=== PATIENT | female | born 1955 | race Caucasian/White ===

== ENCOUNTER → 2021-10-16 | Outpatient (CLI) | payer OTHER | LOC: M SOG 09:18 | PROVIDERS: ATTEND Orthopaedic Surgery Adult Reconstructive Orthopaedic Surgery | DX: M25.561 Pain in right knee (principal) ==

== ENCOUNTER 2022-10-02 13:14 | Inpatient (IN) | payer BC, OTHER ==
[~2022-10-02] VITALS: Ht 165.1 cm; Wt 95.5 kg
[2022-10-02] MEDS ORDERED: MORPHINE 4 MG/ML 1ML VIAL IV ONE ×3 (13:30→19:35)
[2022-10-02] MEDS ORDERED: BOOSTRIX VACCINE (TETANUS/DIPHTH/ACEL. PERTUSSIS) 0.5ML SYR IM.IMMUN ONE (13:35)
[2022-10-02] MEDS ORDERED: VANCOMYCIN HCL 2,000 MG in IV FLUID PLACE HOLDER 1 EA IV ONE (16:30)
[2022-10-02] MEDS ORDERED: VANCOMYCIN HCL 1,000 MG, VIAL MATE ADAPTER 1 EACH in D5W 250 ML IV ONE ×2 (16:35→17:30)
[2022-10-02] MEDS ORDERED: LABETALOL 100MG/20ML VIAL IV STA (16:35)
[2022-10-02] MEDS ORDERED: MED REC IN PROGRESS XX SCH (16:45)
[2022-10-02 17:10] LABS: RSV AMPLIFICATION NEGATIVE (NEGATIVE)
[2022-10-02] MEDS ORDERED: NAPR-855 PO (17:18)
[2022-10-02] MEDS ORDERED: ASPI81TA26 PO (17:18)
[2022-10-02] MEDS ORDERED: LEXA1TAB PO (17:18)
[2022-10-02] MEDS ORDERED: HOME MED LIST COMPLETE! XX SCH (17:20)
[2022-10-02 19:11] LABS: BASO % 0.2 % (0.0-1.0); EOS # 0.2 10^3/uL (0.0-0.5); EOS % 1.1 % (0.0-3.0); HEMATOCRIT 34.3 % (36.0-47.0); HEMOGLOBIN 10.9 g/dl (12.0-15.5); LYMPH # 1.2 10^3/uL (1.5-5.0); LYMPH % 9.5 % (24.0-44.0); MEAN CORPUSCULAR HEMOGLOBIN 29.7 pg (27.0-33.0); MEAN CORPUSCULAR HGB CONC 31.8 g/dl (32.0-36.5); MEAN CORPUSCULAR VOLUME 93.5 fl (80.0-96.0); MONO # 0.5 10^3/uL (0.0-0.8); MONO % 4.1 % (2.0-8.0); NEUTROPHILS # 11.1 10^3/uL (1.5-8.5); NEUTROPHILS % 84.7 % (36.0-66.0); PLATELET COUNT, AUTOMATED 282 10^3/uL (150-450); RED BLOOD COUNT 3.67 10^6/uL (4.00-5.40); WHITE BLOOD COUNT 13.1 10^3/uL (4.0-10.0)
[2022-10-02 19:33] LABS: ALBUMIN 2.9 G/DL (3.2-5.2); ALKALINE PHOSPHATASE 73 U/L (46-116); ALT/SGPT 13 U/L (7.0-40); AST/SGOT 13 U/L (<34); BILIRUBIN,TOTAL 0.3 MG/DL (0.3-1.2); BLOOD UREA NITROGEN 16 MG/DL (9-23); CALCIUM LEVEL 7.8 MG/DL (8.3-10.6); CARBON DIOXIDE LEVEL 29 MMOL/L (20-31); CHLORIDE LEVEL 104 MMOL/L (98-107); CREATININE FOR GFR 0.55 MG/DL (0.55-1.30); GLOMERULAR FILTRATION RATE > 60.0 (>45); GLUCOSE, FASTING 188 MG/DL (74-106); POTASSIUM SERUM 3.9 MMOL/L (3.5-5.1); SODIUM LEVEL 137 MMOL/L (136-145); TOTAL PROTEIN 5.6 G/DL (5.7-8.2)
[2022-10-02] MEDS ORDERED: ACETAMINOPHEN TAB 650MG DOSE (2X325MG) PO PRN (21:05)
[2022-10-02] MEDS ORDERED: NS 1,000 ML IV SCH (21:05)
[2022-10-02 22:15] VITALS: BP 174/90; TEMP 97.6; O2SAT 98
[2022-10-02] MEDS ORDERED: NICOTINE 14 MG/24 HR TRANSDERMAL TD PRN (22:30)
[2022-10-02] MEDS: ESCITALOPRAM OXALATE 10 MG TAB (LEXAPRO) PO SCH (23:11)
[2022-10-02] MEDS: MORPHINE 2 MG/ML 1ML VIAL IV PRN (23:53)
[2022-10-03] VITALS (9 sets, daily range): BP systolic 122–162; BP diastolic 81–89; TEMP 97.5–98.4; O2SAT 92–95
[2022-10-03] MEDS ORDERED: VANCOMYCIN HCL 1,000 MG, VIAL MATE ADAPTER 1 EACH in D5W 250 ML IV SCH (02:00)
[2022-10-03] MEDS: HEPARIN SOD (PORCINE) 5000UNITS/ML 1ML VIAL/SYRINGE SQ SCH ×3 (04:50→21:26)
[2022-10-03] MEDS: MORPHINE 2 MG/ML 1ML VIAL IV PRN (05:22)
[2022-10-03 06:51] LABS: BASO % 0.3 % (0.0-1.0); EOS # 0.1 10^3/uL (0.0-0.5); EOS % 0.7 % (0.0-3.0); HEMATOCRIT 32.6 % (36.0-47.0); HEMOGLOBIN 10.6 g/dl (12.0-15.5); LYMPH # 0.6 10^3/uL (1.5-5.0); LYMPH % 6.1 % (24.0-44.0); MEAN CORPUSCULAR HEMOGLOBIN 29.9 pg (27.0-33.0); MEAN CORPUSCULAR HGB CONC 32.5 g/dl (32.0-36.5); MEAN CORPUSCULAR VOLUME 92.1 fl (80.0-96.0); MONO # 0.4 10^3/uL (0.0-0.8); MONO % 4.1 % (2.0-8.0); NEUTROPHILS # 9.1 10^3/uL (1.5-8.5); NEUTROPHILS % 88.4 % (36.0-66.0); PLATELET COUNT, AUTOMATED 231 10^3/uL (150-450); RED BLOOD COUNT 3.54 10^6/uL (4.00-5.40); WHITE BLOOD COUNT 10.2 10^3/uL (4.0-10.0)
[2022-10-03 07:02] LABS: ALBUMIN 2.7 G/DL (3.2-5.2); ALKALINE PHOSPHATASE 76 U/L (46-116); ALT/SGPT < 9 U/L (7.0-40); AST/SGOT 14 U/L (<34); BILIRUBIN,TOTAL 0.5 MG/DL (0.3-1.2); BLOOD UREA NITROGEN 12 MG/DL (9-23); CALCIUM LEVEL 7.5 MG/DL (8.3-10.6); CARBON DIOXIDE LEVEL 27 MMOL/L (20-31); CHLORIDE LEVEL 102 MMOL/L (98-107); CREATININE FOR GFR 0.41 MG/DL (0.55-1.30); GLOMERULAR FILTRATION RATE > 60.0 (>45); GLUCOSE, FASTING 160 MG/DL (74-106); MAGNESIUM LEVEL 1.6 MG/DL (1.8-2.4); POTASSIUM SERUM 3.8 MMOL/L (3.5-5.1); SODIUM LEVEL 134 MMOL/L (136-145); TOTAL PROTEIN 5.3 G/DL (5.7-8.2)
[2022-10-03] MEDS ORDERED: ONDANSETRON 4MG 2ML VIAL As Ordered ONE (08:12)
[2022-10-03] MEDS ORDERED: propofoL 200 MG/20 ML VIAL As Ordered ONE (08:12)
[2022-10-03] MEDS ORDERED: fentaNYL 100 MCG/2 ML INJECTION As Ordered ONE (08:12)
[2022-10-03] MEDS ORDERED: MIDAZOLAM INJ 2MG/2ML VIAL As Ordered ONE (08:12)
[2022-10-03] MEDS ORDERED: LIDOCAINE 2% 100MG/5ML SDV (FOR ANES.) As Ordered ONE ×2 (08:12→12:30)
[2022-10-03] MEDS ORDERED: KETOROLAC 60MG 2ML VIAL As Ordered ONE (08:12)
[2022-10-03] MEDS ORDERED: CLINDAMYCIN 900MG/6ML VIAL As Ordered ONE (08:21)
[2022-10-03] MEDS ORDERED: IPRATROPIUM 0.5MG/ALBUTEROL 2.5MG INH SOL UD 3ML (DUONEB) NEB ONE (09:00)
[2022-10-03] MEDS ORDERED: ceFAZolin 2 GM/D5W 50 ML IV BAG As Ordered ONE (09:06)
[2022-10-03] MEDS ORDERED: VASOPRESSIN INJ 20UNITS/ML 1ML VIAL As Ordered ONE (10:27)
[2022-10-03] MEDS ORDERED: PHENYLEPHRINE 10MG/ML 1ML VIAL As Ordered ONE (10:47)
[2022-10-03] MEDS ORDERED: EPINEPHrine INJ 1 MG/ML 1ML AMP As Ordered ONE (10:48)
[2022-10-03] MEDS ORDERED: SUCCINYLCHOLINE 100MG/5ML SYRINGE As Ordered ONE (11:00)
[2022-10-03] MEDS ORDERED: ROCURONIUM BROMIDE 50MG/5ML VIAL As Ordered ONE (11:00)
[2022-10-03] MEDS ORDERED: ePHEDrine SULFATE 25 MG/5 ML(5MG/ML) SYRINGE As Ordered ONE (11:00)
[2022-10-03] MEDS ORDERED: GLYCOPYRROLATE INJ 0.2 MG/ML 2 ML VIAL As Ordered ONE (12:27)
[2022-10-03] MEDS ORDERED: NEOSTIGMINE 10MG 10ML VIAL As Ordered ONE (12:28)
[2022-10-03] MEDS ORDERED: fentaNYL 100 MCG/2 ML INJECTION IV PRN (12:30)
[2022-10-03] MEDS ORDERED: diphenhydrAMINE 50MG/ML VIAL IV PRN (12:30)
[2022-10-03] MEDS ORDERED: METOCLOPRAMIDE INJ 10MG/2ML VIAL IV PRN (12:30)
[2022-10-03] MEDS ORDERED: LR 1,000 ML IV SCH (12:30)
[2022-10-03] MEDS ORDERED: MEPERIDINE 25 MG/ML 1ML VIAL IV PRN (12:30)
[2022-10-03] MEDS ORDERED: oxyCODONE 5MG TAB PO PRN (12:30)
[2022-10-03] MEDS ORDERED: NALBUPHINE HCL 10 MG/ML 1ML AMP IV PRN (12:30)
[2022-10-03] MEDS ORDERED: INSULIN LISPRO (NovoLOG) PER UNIT SC PRN (12:30)
[2022-10-03] MEDS ORDERED: ONDANSETRON 4MG 2ML VIAL IV PRN (12:30)
[2022-10-03] MEDS ORDERED: ACETAMINOPHEN 1000MG 100ML IV BAG As Ordered ONE (13:06)
[2022-10-03] MEDS: VANCOMYCIN HCL 1,000 MG, VIAL MATE ADAPTER 1 EACH in D5W 250 ML IV SCH ×2 (15:06→23:11)
[2022-10-03] MEDS: ceFAZolin SOD 2 GM in IV 1 EA IV SCH (21:07)
[2022-10-03] MEDS: ESCITALOPRAM OXALATE 10 MG TAB (LEXAPRO) PO SCH (21:07)
[2022-10-04 02:00] VITALS: BP 131/83; TEMP 97.9; O2SAT 97
[2022-10-04] MEDS: ceFAZolin SOD 2 GM in IV 1 EA IV SCH (04:03)
[2022-10-04] MEDS: HEPARIN SOD (PORCINE) 5000UNITS/ML 1ML VIAL/SYRINGE SQ SCH ×2 (05:12→14:00)
[2022-10-04 05:58] VITALS: BP 153/87; TEMP 97.7; O2SAT 97
[2022-10-04 06:18] LABS: VANCOMYCIN LEVEL TROUGH 15.8 UG/ML (10.0-20.0)
[2022-10-04] MEDS: VANCOMYCIN HCL 1,000 MG, VIAL MATE ADAPTER 1 EACH in D5W 250 ML IV SCH ×2 (06:49→14:32)
[2022-10-04 07:22] LABS: MAGNESIUM LEVEL 1.6 MG/DL (1.8-2.4)
[2022-10-04] MEDS ORDERED: PANT-23 PO (09:38)
[2022-10-04] MEDS ORDERED: OXYC1TAB23 PO (09:38)
[2022-10-04] MEDS ORDERED: MAGN500C2 PO (09:44)
[2022-10-04 10:00] VITALS: BP 147/82; TEMP 97.9; O2SAT 98
== END 2022-10-04 15:40 | disposition home or self-care (01) | DRG 315 ==
LOC: M ED 13:14 → EDBD 13:14 → M ED INP 20:49 → M MS5PR 22:15
PROVIDERS: ADMIT Family Medicine; ATTEND Family Medicine
PROC: 0PSG04Z Reposition Left Humeral Shaft with Internal Fixation Device, Open Approach (ICD-10-PCS; principal; 2022-10-03 08:30)
DX: S42.402B Unspecified fracture of lower end of left humerus, initial encounter for open fracture (principal); F17.210 Nicotine dependence, cigarettes, uncomplicated; E83.42 Hypomagnesemia; F41.9 Anxiety disorder, unspecified; W01.0XXA Fall on same level from slipping, tripping and stumbling without subsequent striking against object, initial encounter; Y92.513 Shop (commercial) as the place of occurrence of the external cause; Z88.0 Allergy status to penicillin; Z88.2 Allergy status to sulfonamides; Z79.82 Long term (current) use of aspirin; Z79.899 Other long term (current) drug therapy; Z90.49 Acquired absence of other specified parts of digestive tract; Z90.79 Acquired absence of other genital organ(s); Z71.6 Tobacco abuse counseling

== ENCOUNTER → 2022-10-11 | Outpatient (CLI) | payer BC, OTHER ==
[~2022-10-11] MED LIST: ASPI81TA26 PO; LEXA1TAB PO; MAGN500C2 PO; NAPR-855 PO; OXYC1TAB23 PO; PANT-23 PO
== END ==
LOC: M SOG 07:51
PROVIDERS: ATTEND Physician Assistant
DX: M25.522 Pain in left elbow (principal)

== ENCOUNTER → 2022-10-29 | Outpatient (CLI) | payer BC, OTHER | LOC: M SOG 10:19 | PROVIDERS: ATTEND Orthopaedic Surgery | DX: M25.522 Pain in left elbow (principal) ==

== ENCOUNTER → 2022-12-10 | Outpatient (CLI) | payer BC, OTHER | LOC: M SOG 07:58 | PROVIDERS: ATTEND Orthopaedic Surgery | DX: S42.492D Other displaced fracture of lower end of left humerus, subsequent encounter for fracture with routine healing (principal) ==

== ENCOUNTER → 2023-02-09 | Outpatient (CLI) | payer BC, OTHER | LOC: M SOG 07:52 | PROVIDERS: ATTEND Orthopaedic Surgery | DX: Z47.89 Encounter for other orthopedic aftercare (principal) ==

== ENCOUNTER → 2023-03-18 | Outpatient (CLI) | payer BC, OTHER | LOC: M SOG 13:02 | PROVIDERS: ATTEND Physician Assistant | DX: S42.492D Other displaced fracture of lower end of left humerus, subsequent encounter for fracture with routine healing (principal); Y93.9 Activity, unspecified; Y92.9 Unspecified place or not applicable ==

== ENCOUNTER → 2023-05-24 | Outpatient (CLI) | payer BC, OTHER | LOC: M SOG 07:49 | PROVIDERS: ATTEND Physician Assistant | DX: S42.492D Other displaced fracture of lower end of left humerus, subsequent encounter for fracture with routine healing (principal) ==

== ENCOUNTER → 2023-06-09 | Outpatient (CLI) | payer OTHER, MEDICARE | LOC: M SOG 08:20 | PROVIDERS: ATTEND Physician Assistant | DX: S42.492D Other displaced fracture of lower end of left humerus, subsequent encounter for fracture with routine healing (principal) ==

== ENCOUNTER → 2023-12-28 | Outpatient (CLI) | payer OTHER, MEDICARE | LOC: M SOG 07:20 | PROVIDERS: ATTEND Physician Assistant | DX: S42.492D Other displaced fracture of lower end of left humerus, subsequent encounter for fracture with routine healing (principal) ==

== ENCOUNTER → 2024-01-18 | Outpatient (CLI) | payer OTHER, MEDICARE | LOC: M SOG 07:25 | PROVIDERS: ATTEND Physician Assistant | DX: M25.512 Pain in left shoulder (principal) ==

== ENCOUNTER → 2024-04-13 | Outpatient (CLI) | payer OTHER, MEDICARE | LOC: M SOG 07:53 | PROVIDERS: ATTEND Physician Assistant | DX: Z53.9 Procedure and treatment not carried out, unspecified reason (principal) ==

== ENCOUNTER → 2024-05-07 | Outpatient (CLI) | payer MEDICARE | LOC: M SOG 07:49 | PROVIDERS: ATTEND Physician Assistant | DX: M19.012 Primary osteoarthritis, left shoulder (principal) ==

== ENCOUNTER → 2024-08-14 | Outpatient (CLI) | payer MEDICARE | LOC: M CARPUL 13:08 | PROVIDERS: ATTEND Physician Assistant | DX: R06.00 Dyspnea, unspecified (principal); J98.6 Disorders of diaphragm ==

== ENCOUNTER → 2024-08-14 | Outpatient (CLI) | payer MEDICARE | LOC: M RADPRO 10:12 | PROVIDERS: ATTEND Physician Assistant | DX: J98.6 Disorders of diaphragm (principal) ==